=== PATIENT | male | born 2000 | race African-American/Black ===

== ENCOUNTER 2019-01-19 15:27 | Emergency (ER) | payer OTHER ==
[~2019-01-19] VITALS: Ht 175.3 cm; Wt 81.7 kg
[2019-01-19] MEDS ORDERED: IBUPROFEN 800800 M1 PO (16:36)
[2019-01-19 17:17] VITALS: BP 122/70
== END 2019-01-19 17:17 | disposition home or self-care (01) ==
LOC: ER 15:27
DX: S60.221A Contusion of right hand, initial encounter (principal); W22.8XXA Striking against or struck by other objects, initial encounter; Y93.89 Activity, other specified; Y92.89 Other specified places as the place of occurrence of the external cause; Y99.8 Other external cause status

== ENCOUNTER 2021-09-27 11:37 | Emergency (ER) | payer OTHER ==
[~2021-09-27] VITALS: Ht 175.3 cm; Wt 74.4 kg
[~2021-09-27 11:37] MED LIST: IBUPROFEN 800800 M1 PO
[2021-09-27 11:40] VITALS: BP 125/91
[2021-09-27] MEDS ORDERED: ERYTHROMYCIN E3.5 G3 OPHTHALMIC (12:23)
[2021-09-27] MEDS ORDERED: NORCO5 PO (12:23)
== END 2021-09-27 12:33 | disposition home or self-care (01) ==
LOC: ER 11:37
DX: S05.01XA Injury of conjunctiva and corneal abrasion without foreign body, right eye, initial encounter (principal); X58.XXXA Exposure to other specified factors, initial encounter; Y93.89 Activity, other specified; Y92.89 Other specified places as the place of occurrence of the external cause; Y99.8 Other external cause status